=== PATIENT | female | born 1975 | race African-American/Black ===

== ENCOUNTER 2024-06-21 20:55 | Emergency (ER) | payer BC ==
[~2024-06-21] VITALS: Ht 165.1 cm; Wt 58.0 kg
[2024-06-21 21:06] VITALS: BP 120/88; PULSE 86; RESP 20; TEMP 98; O2SAT 99
== END 2024-06-22 00:47 | disposition left against medical advice (07) ==
LOC: ER 20:55
DX: F41.9 Anxiety disorder, unspecified (principal)
CPT/HCPCS: 99283